=== PATIENT | male | born 2000 | race Caucasian/White ===

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

== ENCOUNTER → 2019-01-05 12:31 | Outpatient (CLI) | payer BC, SELFPAY ==
--- NOTE | 2019-01-05 12:39 | US_ITS ---
US thyroid HISTORY: ITS.REASON: ABNORMAL THYROID BLOOD ORDERING PHYSICIAN: TOLU Lawson PATIENT AGE: 18 years Comparison: None FINDINGS: Right lobe: 4.1 x 1.4 cm with homogeneous echogenicity Left lobe: 4.1 x 0.9 cm with homogeneous echogenicity Isthmus: 3 mm in thickness. No nodules No nodules apparent IMPRESSION: Unremarkable thyroid ultrasound
== END ==
PROVIDERS: PCP Physician Assistant; Visit Provider Physician Assistant
DX: R79.89 Other specified abnormal findings of blood chemistry (principal)
CPT/HCPCS: 76536

== ENCOUNTER 2021-03-04 21:06 | Emergency (ER) | payer BC, SELFPAY ==
[2021-03-04 21:08] VITALS: BP 125/76; PULSE 89; RESP 16; TEMP 36.9; O2SAT 97; BMI 17.4
--- NOTE | 2021-03-04 21:29 | [facility].EDWNDL ---
ED Disposition Clinical Impression: Elbow laceration Qualifiers: Encounter type: initial encounter Laterality: left Qualified Code(s): S51.012A - Laceration without foreign body of left elbow, initial encounter Disposition: Home, Self-Care Condition on Discharge: Good Instructions: DI for Laceration Repair Additional Instructions: sutures out 10 days and recheck if needed Prescriptions: cephALEXin [cephALEXin 500mg capsule*] 500 mg PO TID #30 cap Transmission Status: Pending to [facility] #[id number] Referrals: Provider,Referral, [Primary Care Provider] - - Critical Care Critical Care Time: No Attestation: On 03/04/21, the high probability of a clinically significant, sudden or life threatening deterioration of the following system(s) required my full and direct attention, intervention and personal management. The time I documented below is in addition to time spent performing reported procedures but includes the following listed in this critical care notation. Medical Decision Making - Medical Records Medical records reviewed: Yes: I reviewed the patient's medical records. - [place] Inquiry Pt receiving controlled substance: No Vital Signs: 03/04/21 21:08 Temperature 98.5 F Temperature Source Oral Pulse Rate [Left Radial] 89 Respiratory Rate 16 Blood Pressure [Right Arm] 125/76 Blood Pressure Mean [Right Arm] 92 Blood Pressure Source [Right Arm] Automatic Cuff Blood Pressure Position [Right Arm] Sitting 02 Sat by Pulse Oximetry 97 Oxygen Delivery Method Room Air Orders (Tests/Meds): ED MEDICATIONS Discontinued Medications Generic Name Dose Route Start Last Admin Trade Name Freq PRN Reason Stop Dose Admin Ceftriaxone Sodium 1 gm 03/04/21 21:22 Ceftriaxone 1gm Vial IM 03/04/21 21:23 ONCE ONE Protocol Lidocaine HCl 0 ml 03/04/21 21:22 Lidocaine 1% 5ml Pf Vial IM 03/04/21 21:23 ONCE ONE Tetanus/Diphtheria Toxoids 0.5 ml 03/04/21 21:21 Tetanus-Diphth Toxoid, Adult 0.5ml Syr IM 03/04/21 21:22 .ONCE ONE Medical Decision Narrative: small lac will suture and give abx at this time Wound/Laceration HPI - General Chief Complaint: Wound/Laceration Stated Complaint: AO 02/02@1400 nail went into L arm Time Seen by Provider: 03/04/21 21:15 Mode of Arrival: Ambulatory Source of Information: Patient, Parent(s), Medical Record Limitations: No Limitations Description of Symptoms (Recalled from ER Triage Doc. by RN): Pt was walking under a deck when left arm was punctured by a nail. Puncture to left forearm, right under the elbow. Pt has full ROM. No active bleeding. - History of Present Illness HPI narrative: small lac 0.5 to lt lat elbow today on nail Onset (ago): hour(s) Extremity Location: Left: elbow Place: home Patient tetanus UTD: No Context: accidental Associated symptoms: none - Related Data Previous Rx's Medication Instructions Recorded cephALEXin [cephALEXin 500mg 500 mg PO TID #30 cap 03/04/21 capsule*] Allergies Allergy/AdvReac Type Severity Reaction Status Date / Time No Known Allergies Allergy Verified 03/04/21 21:20 [facility] History - Hepatitis A Screen Drug use history?: No High risk sexual behaviors?: No History of sexually transmitted infection?: No Currently employed?: No Childcare worker?: No Do you have indoor plumbing?: Yes Do you have electricity?: Yes Attestation statement:: This patient has been screened for Hepatitis A risk factors. I have reviewed the patient's past medical history: Yes ROS Obtained: Yes All systems reviewed & no additional complaints - Constitutional Constitutional: Denies fever(s) - Eyes Eyes: Denies change in vision - ENT Ears, Nose, Mouth, and Throat: Denies sore throat - Cardiovascular Cardiovascular: Denies chest pain - Respiratory Respiratory: Denies shortness of breath - Gastrointestinal Gastrointestingal: Denies: abdominal pain - Ge
[2021-03-04 21:59] VITALS: BP 112/75; PULSE 72; RESP 16; TEMP 36.7; O2SAT 98
== END 2021-03-04 22:01 | disposition home or self-care (01) ==
PROVIDERS: Emergency Provider Emergency Medicine
DX: S51.012A Laceration without foreign body of left elbow, initial encounter (principal); W22.8XXA Striking against or struck by other objects, initial encounter; Y92.89 Other specified places as the place of occurrence of the external cause; Z23 Encounter for immunization
CPT/HCPCS: 12001; 90471; 90714; 99282